=== PATIENT | female | born 1985 ===

== ENCOUNTER 2017-06-15 13:03 | Emergency (ER) | payer MEDICAID, OTHER ==
[2017-06-15 13:38] VITALS: TEMP 98.4
[2017-06-15] MEDS ORDERED: Sodium Chloride 0.9% 1,000 ML IV STA (13:52)
[2017-06-15] MEDS ORDERED: Trimethobenzamide 200 mg/2 mL Inj IM ONE (14:17)
[2017-06-15 14:31] LABS: BASO # 0.1 K/uL (0.0-0.2); BASO % 0.8 % (0.0-2.0); EOS % 0.2 % (0.0-4.0); HEMOGLOBIN 13.6 g/dL (12.0-16.0); LYMPH # 1.5 K/uL (1.0-4.3); LYMPH % 15.7 % (20.0-40.0); MEAN CELL VOLUME 91.3 fl (81.0-99.0); MEAN CORPUSCULAR HEMOGLOBIN 31.3 pg (27.0-31.0); MEAN CORPUSCULAR HGB CONC 34.2 g/dL (33.0-37.0); MEAN PLATELET VOLUME 7.8 fl (7.2-11.7); MONO # 0.6 K/uL (0.0-0.8); MONO % 6.2 % (0.0-10.0); NEUT # 7.4 K/uL (1.8-7.0); NEUT % 77.1 % (50.0-75.0); NRBC % 0.1 % (0.0-0.0); RBC 4.34 Mil/uL (3.80-5.20); RED CELL DISTRIBUTION WIDTH 12.9 % (11.5-14.5); WHITE BLOOD COUNT 9.6 K/uL (4.8-10.8)
[2017-06-15 14:38] LABS: ALB/GLOB RATIO 1.2 (1.0-2.1); ALBUMIN 4.2 g/dL (3.5-5.0); CALCIUM 9.6 mg/dL (8.4-10.2); GFR AFRICAN-AMERICAN > 60; GFR NON-AFRICAN AMERICAN > 60
[2017-06-15 14:48] LABS: ALT/SGPT 25 U/L (9-52); AST/SGOT 33 U/L (14-36); BLOOD UREA NITROGEN 10 mg/dl (7-17)
--- NOTE | 2017-06-15 15:50 | ED PDOC ---
HPI: Abdomen Time Seen by Provider: 06/15/17 13:05 Chief Complaint (Nursing): GI Problem Chief Complaint (Provider): hyperemesis History Per: Patient History/Exam Limitations: no limitations Onset/Duration Of Symptoms: Days Associated Symptoms: Nausea, Vomiting. denies: Fever, Chills, Other (vaginal bleeding or discharge) Additional Complaint(s): Wilberto Ware is a 32 year old female, with no significant past medical history, who presents to the emergency department for hyperemesis onset for x1 day. Patient reports she has not been able to keep anything down. She was unable to fill her anti-nausea medication given to her by a [facility] doctor x19 days ago because of insurance. Patient is A3. She denies any fever, chills, or vaginal bleeding. Patient denies any current pain at this time. No further medical complaints. PMD: None provided. Abnormal Vaginal Bleeding: No : 5 Para: 1 Miscarriage: 3 Past Medical History Reviewed: Historical Data, Nursing Documentation, Vital Signs Vital Signs: Last Vital Signs Temp 98.4 F 06/15/17 17:14 Pulse 65 06/15/17 17:14 Resp 19 06/15/17 17:14 BP 112/63 06/15/17 17:14 Pulse Ox 98 06/15/17 17:14 - Medical History PMH: No Chronic Diseases - Surgical History Surgical History: No Surg Hx - Family History Family History: States: Unknown Family Hx - Social History Current smoker - smoking cessation education provided: No Alcohol: None Drugs: Denies - Home Medications Home Medications: Ambulatory Orders Medication Instructions Recorded Naproxen 500 mg PO Q12 #20 tab 08/09/14 traMADol [Ultram] 50 mg PO TID PRN #50 tab 08/09/14 Promethazine HCl/Codeine 10 ml PO Q8H PRN #200 ml 12/05/14 [Promethazine HCl-Codeine Phosphate 10 mg/5 ml] Doxylamine/Pyridoxine HCl (B6) 1 each PO QPM #30 tablet. 01/01/16 [Ana Wilkins 10-10 mg Tablet] - Allergies Allergies/Adverse Reactions: Allergies Allergy/AdvReac Type Severity Reaction Status Date / Time shellfish derived Allergy Mild RASH Verified 06/15/17 13:34 Review of Systems ROS Statement: Except As Marked, All Systems Reviewed And Found Negative Constitutional: Negative for: Fever, Chills Gastrointestinal: Positive for: Nausea, Vomiting Genitourinary Female: Negative for: Vaginal Bleeding Physical Exam - Reviewed Nursing Documentation Reviewed: Yes Vital Signs Reviewed: Yes - Physical Exam Appears: Positive for: Well, Non-toxic, No Acute Distress Head Exam: Positive for: ATRAUMATIC, NORMOCEPHALIC Skin: Positive for: Normal Color, Warm, Dry Eye Exam: Positive for: Normal appearance Neck: Positive for: Painless ROM, Supple Cardiovascular/Chest: Positive for: Regular Rate, Rhythm. Negative for: Murmur Respiratory: Positive for: Normal Breath Sounds. Negative for: Respiratory Distress Gastrointestinal/Abdominal: Positive for: Normal Exam, Soft. Negative for: Tenderness, Guarding, Rebound Back: Positive for: Normal Inspection. Negative for: L CVA Tenderness, R CVA Tenderness, Vertebral Tenderness Extremity: Positive for: Normal ROM (upper and lower extremities). Negative for : Tenderness, Deformity, Swelling Neurologic/Psych: Positive for: Alert, Oriented. Negative for: Motor/Sensory Deficits - Laboratory Results Result Diagrams: 06/15/17 14:05 06/15/17 14:05 - ECG O2 Sat by Pulse Oximetry: 100 (RA) Pulse Ox Interpretation: Normal Medical Decision Making Medical Decision Making: Initial Impression: hyperemesis Initial Plan: --Beta-HCG, Quantitative --CMP --CBC w/ differential --Sodium Chloride 1,000 ml IV 999 mls/hr --Reglan 10 mg PO --Tigan 200 mg IM --Reevaluation 17:00 -Patient feels significantly better and is tolerating PO. -Upon provider reevaluation patient is feeling better, is medically stable, and requires no further treatment in the ED at this time. Patient will be discharged home. Counseling was provided and all questions were answered regarding diagnosis. There is agreement to discharge plan and was advised to follow up with outpatient women[facility] clinic. Return if symptoms persist or worsen. ~ Scribe Attestation: Documented by Gabino Guevara, acting as a scribe for Joanna Fowler MD. Provider Scribe Attestation: All medical record entries made by the Scribe were at my direction and personally dictated by me. I have reviewed the chart and agree that the record accurately reflects my personal performance of the history, physical exam, medical decision making, and the department course for this patient. I have also personally directed, reviewed, and agree with the discharge instructions and disposition. Disposition - Clinical Impression Clinical Impression: Hyperemesis gravidarum - Patient ED Disposition Is Patient to be Admitted: No Counseled Patient/Family Regarding: Studies Performed, Diagnosis, Need For Followup - Disposition Referrals: [facility] [Outside] [facility] [Outside] Disposition: Routine/Home Disposition Time: 16:30 Condition: IMPROVED Additional Instructions: follow up with your primary solid waste facility operator in 1-2 days return to the ED with any worsening or concerning symptoms Instructions: Hyperemesis Gravidarum Forms: [email or web address] (Nepali), [facility] ED School/Work Excuse
[2017-06-15 17:15] VITALS: BP 112/63; PULSE 65; RESP 19
[2017-06-21 08:57] VITALS: O2SAT 100
== END 2017-06-15 18:37 | disposition home or self-care (01) ==
LOC: H.ER 13:03
DX: O21.0 Mild hyperemesis gravidarum (principal)
CPT/HCPCS: 80053; 84702; 85025; 99283; J7040